=== PATIENT | female | born 1990 | race Caucasian/White ===

== ENCOUNTER 2019-02-08 13:15 | Emergency (ER) | payer BC ==
[~2019-02-08] VITALS: Ht 160 cm; Wt 68.6 kg
[2019-02-08 13:19] VITALS: BP 147/86
[2019-02-08] MEDS: KETOROLAC 60 MG/2 ML VIAL IM ONE (15:19)
[2019-02-08] MEDS: LORazepam 2 MG/ML VIAL IM ONE (16:08)
[2019-02-08 16:19] VITALS: BP 124/81
== END 2019-02-08 16:19 | disposition home or self-care (01) ==
LOC: MED 13:15
DX: F43.9 Reaction to severe stress, unspecified (principal); R42 Dizziness and giddiness; R11.0 Nausea
CPT/HCPCS: 81002; 81025; 96372; 99283; J1885; J2060